=== PATIENT | male | born 1985 | race Caucasian/White ===

== ENCOUNTER 2020-11-27 14:57 | Emergency (ER) | payer SELFPAY ==
--- NOTE | 2020-11-27 15:02 | ED.GENADULT ---
HPI - General Adult General Chief complaint: Skin/Abscess/Foreign Body Stated complaint: Spreading Rash Time Seen by Provider: 11/27/20 15:01 Source: patient Mode of arrival: ambulatory Limitations: no limitations History of Present Illness HPI narrative: 35-year-old male patient presents to the [facility] with complaints of a rash to the left arm for the past 5 months. Patient states he did he does have history of eczema in the past but states that when he came into contact with some grew out couple months ago he had a worsening rash to the left arm. Patient states he has tried multiple [id number] medications including hydrocortisone ointment for the rash and states it continues to get worse. Patient states he was seen in June for some back pain and he was put on steroids and he noticed that the steroids did help clear up some of the rash. Patient denies being on daily antihistamines. Denies any fevers, body aches or chills. Denies any nausea, vomiting or diarrhea. Denies chest pain or shortness of breath. Related Data Allergies Allergy/AdvReac Type Severity Reaction Status Date / Time No Known Allergies Allergy Verified 11/27/20 15:13 Review of Systems Review of Systems: Narrative: CONSTITUTIONAL: Denies fever, chills, or sweats. EYES: Denies visual changes, redness, or discharge. ENT: Denies rhinorrhea, congestion, sore throat, or otalgia. CARDIOVASCULAR: Denies chest pain, palpitations, or edema. RESPIRATORY: Denies cough or dyspnea. GASTROINTESTINAL: Denies abdominal pain, nausea, vomiting, or diarrhea. GENITOURINARY: Denies dysuria or hematuria. SKIN: Positive rash to left arm x5 months with burning and itching. MUSCULOSKELETAL: Denies back pain, joint pain, or myalgia. NEUROLOGIC: Denies headache, numbness, or weakness. PSYCHIATRIC: Denies anxiety or depression. [facility] Past Medical History Medical History (Updated 11/27/20 @ 15:35 by GABY Miller) Clavicle fracture Eczema Musculoskeletal disorder Bulging disks in back, left hip pain Surgical History Surgical History (Updated 11/27/20 @ 15:07 by GABY Miller) History of appendectomy Comments At the time of my signature I agree with nursing past medical history, surgical, social, and family history. There is no relevant family history pertinent to the presenting complaint. Exam Narrative: Exam Narrative: GENERAL: Well-appearing, well-nourished, and in no acute distress. HEAD: Normocephalic, atraumatic. EYES: PERRLA and EOMI. ENT: Nares clear, no rhinorrhea or epistaxis. Mucous membranes moist. NECK: Supple. No lymphadenopathy CHEST: Clear to auscultation. No respiratory distress. HEART: Regular rate and rhythm. No murmur heard. Normal peripheral pulses. ABDOMEN: Soft, nontender, nondistended, normal active bowel sounds. EXTREMITIES: Normal range of motion. No edema. SKIN: Warm, dry, patient has rash noted to the left arm from the wrist to the middle of the forearm. It does appear very dry and is cracking along the wrist area. No obvious open areas or drainage noted. No warmth noted on palpitation. NEURO: No focal deficits. Alert and oriented x3. Course Vital Signs Vital signs: Vital Signs Temperature 36.2 C L 11/27/20 15:12 Pulse Rate 65 11/27/20 15:12 Respiratory Rate 16 11/27/20 15:12 Blood Pressure 148/80 H 11/27/20 15:12 Pulse Oximetry 98 11/27/20 15:12 Temperature 36.2 C L 11/27/20 15:12 Pulse Rate 65 11/27/20 15:12 Respiratory Rate 16 11/27/20 15:12 Blood Pressure 148/80 H 11/27/20 15:12 Pulse Oximetry 98 11/27/20 15:12 Vital signs reviewed The patient has been informed that they may have pre-hypertension or Hypertension based on a BP reading in the department. I recommend that the patient call the primary care provider listed on their discharge instructions or a physician of their choice this week to arrange follow up for further evaluation of possible pre-hypertension or Hyperten
[2020-11-27 15:12] VITALS: BP 148/80; PULSE 65; RESP 16; TEMP 36.2; O2SAT 98
== END 2020-11-27 15:38 | disposition home or self-care (01) ==
PROVIDERS: Emergency Provider Nurse Practitioner Family
DX: L30.9 Dermatitis, unspecified (principal)
CPT/HCPCS: 99203; G0463

== ENCOUNTER 2022-06-15 17:08 | Emergency (ER) | payer SELFPAY ==
--- NOTE | 2022-06-15 17:12 | ED.EAR ---
HPI - Ear Problem General Chief complaint: Ear Stated complaint: Left ear pain and pressure; bend down makes worse Time Seen by Provider: 06/15/22 17:25 Source: patient and RN notes reviewed Mode of arrival: ambulatory Limitations: no limitations History of Present Illness HPI Narrative: 37-year-old male presents concern for left ear pain. He reports pressure and bending down makes the pain worse. He reports over the last week he has had sinus pressure, congestion, drainage. He denies cough, sore throat, fever, body aches, drainage from the ear. MD Complaint: ear pain Related Data Allergies Allergy/AdvReac Type Severity Reaction Status Date / Time No Known Allergies Allergy Verified 06/15/22 17:19 Review of Systems Review of Systems: CONSTITUTIONAL: Denies malaise, chills, sweats, or fever. EYES: Denies visual changes, redness, or discharge. ENT: Reports rhinorrhea, congestion. Denies sinus pain, and sore throat. Reports ear pain CARDIOVASCULAR: Denies chest pain, palpitations, or edema. RESPIRATORY: Denies cough. Denies dyspnea. GASTROINTESTINAL: Denies abdominal pain, nausea, vomiting, diarrhea SKIN: Denies rash or itching. MUSCULOSKELETAL: Denies myalgia. NEUROLOGIC: Denies headache. All systems reviewed & are unremarkable except as noted in HPI and below PMFSH Past Medical History Medical History (Updated 06/15/22 @ 18:09 by Allison Vega NP) Clavicle fracture Eczema Musculoskeletal disorder Bulging disks in back, left hip pain Surgical History Surgical History (Updated 11/27/20 @ 15:07 by GABY Miller) History of appendectomy Comments At time of signature, agree with nursing past medical, surgical, social and family history. There is no relevant family history pertinent to the presenting complaint Exam Narrative: GENERAL: Well-appearing, well-nourished, and in no acute distress. HEAD: Normocephalic EYES: PERRLA, conjunctivae clear ENT: Nares clear, turbinates edematous, clear discharge. Mucous membranes moist. Right TM pearly jiménez with dull light reflex, left TM not visible due to cerumen impaction; no tragal tenderness. Oropharynx not erythematous without lesions. Tonsils not enlarged and without exudate, no drooling, no hoarseness, no trismus, uvula midline. NECK: Supple. No lymphadenopathy CHEST: Clear to auscultation, breath sounds equal. No wheezing, rhonchi, rales, or stridor. No respiratory distress, speaks in full sentences. HEART: Regular rate and rhythm. No murmur heard. SKIN: Warm, dry, no rash. NEURO: Alert and oriented x3. PSYCH: Normal mood and affect Course Course Emergency Course: Patient is aware of diagnosis, understands and agrees to treatment plan. Anticipatory guidance given. Patient agrees to follow-up as directed and is aware of reasons to seek care at the emergency department. Portions of this record may have been created with voice recognition software Level of Care: Express Care Visit Vital Signs Vital signs: Reviewed. Procedures Ear Wax Removal Left Ear: Ear Wax Removal Date: 06/15/22 Ear Wax Removal Time: 17:37 Cerumenolytic Used: other (Hydrogen peroxide) Results: Re-examined: removal reattempted Ear Canal Exam: atraumatic Patient Tolerated Procedure: well Complications: no problems Technique: ear canal irrigated and ear canal curetted Additional Comments: Unable to remove cerumen. Advised patient on measures he can take at home. Advised that he can return for reevaluation after he finishes antibiotic if he is still having ear pain. Medical Decision Making MDM Narrative Medical decision making narrative: Differential diagnosis considered: Weber virus, strep pharyngitis, allergic rhinitis, upper respiratory tract infection, sinusitis, rhinosinusitis, nasopharyngitis. viral pharyngitis, otitis media, otitis externa, otitis effusion, cerumen impaction, foreign body. Exam findings show no acu
[2022-06-15 17:14] VITALS: BP 120/71; PULSE 61; RESP 14; TEMP 36.7; O2SAT 100
== END 2022-06-15 18:12 | disposition home or self-care (01) ==
PROVIDERS: Emergency Provider Nurse Practitioner
DX: J32.9 Chronic sinusitis, unspecified (principal); H61.22 Impacted cerumen, left ear
CPT/HCPCS: 69210; 99213; G0463

== ENCOUNTER 2022-06-16 15:45 | Emergency (ER) | payer SELFPAY ==
[2022-06-16 15:49] VITALS: BP 116/84; PULSE 88; RESP 18; TEMP 37.4; O2SAT 99
--- NOTE | 2022-06-16 15:49 | ED.EAR ---
HPI - Ear Problem General Chief complaint: Ear Stated complaint: Ear Pain Time Seen by Provider: 06/16/22 15:49 Source: patient and RN notes reviewed History of Present Illness HPI Narrative: Patient is a 37-year-old male who presents the urgent care with complaints of left ear pain. Patient was at our facility yesterday for impaction to the left ear and placed on Augmentin and advised to use Debrox [id number]. Patient was unable to wait at the facility to try to have the cerumen removed completely because he did not have time . Patient has not started the Augmentin because the medication was too expensive . However patient has used the Debrox without any relief. Patient states his hearing now feels muffled with increased pain. Denies of any other upper respiratory complaints or fever. No other acute complaints. No acute distress noted. Patient aware of the plan of care. Some parts of this dictation were generated by voice recognition software and may contain typographical and/or grammatical inaccuracies. Related Data Allergies Allergy/AdvReac Type Severity Reaction Status Date / Time No Known Allergies Allergy Verified 06/16/22 15:58 Review of Systems Review of Systems: CONSTITUTIONAL: Denies fever, chills, or sweats. EYES: Denies visual changes, redness, or discharge. ENT: Denies rhinorrhea, congestion, sore throat. Reports of left otalgia CARDIOVASCULAR: Denies chest pain, palpitations, or edema. RESPIRATORY: Denies cough or dyspnea. GASTROINTESTINAL: Denies abdominal pain, nausea, vomiting, or diarrhea. GENITOURINARY: Denies dysuria or hematuria. SKIN: Denies rash or itching. MUSCULOSKELETAL: Denies back pain, joint pain, or myalgia. NEUROLOGIC: Denies headache, numbness, or weakness. All other systems reviewed are negative, except as documented in HPI. [facility] Past Medical History Medical History (Updated 06/16/22 @ 16:26 by GABY Apodaca) Clavicle fracture Eczema Musculoskeletal disorder Bulging disks in back, left hip pain Surgical History Surgical History (Updated 11/27/20 @ 15:07 by GABY Miller) History of appendectomy Comments At the time of my signature, I reviewed and agree with the nursing past medical, surgical, social, and family history. There is no relevant family history pertinent to the patient complaint. Exam Narrative: GENERAL: This is a well-nourished, well-developed patient, in no apparent distress. HEAD: normocephalic, atraumatic. EYES: PERRL. Sclera clear/white. Vision is grossly intact. EARS: External ears normal, auditory canals clear and without drainage, unable to visualize left TM due to cerumen impaction, right TM normal without perforation. Hearing grossly intact. NOSE: External nose normal with no obvious nasal discharge, nares without redness, no rhinorrhea. THROAT: Mucous membranes moist, posterior pharynx clear. NECK: Neck supple CARDIOVASCULAR: Regular rate and rhythm without murmurs, gallops, or rubs. RESPIRATORY: Clear to auscultation. Breath sounds equal bilaterally. No wheezes, rales, or rhonchi. SKIN: warm, intact with no suspicious lesions or rash, good texture and turgor. NEURO: awake, alert, and oriented to person, place and time. There were no obvious focal neurologic abnormalities. EXTREMITIES: No clubbing, cyanosis, or edema. Course Course Level of Care: Express Care Visit Vital Signs Vital signs: Vital Signs Temperature 99.3 F 06/16/22 15:49 Pulse Rate 88 06/16/22 15:49 Respiratory Rate 18 06/16/22 15:49 Blood Pressure 116/84 06/16/22 15:49 Pulse Oximetry 99 06/16/22 15:49 Oxygen Delivery Room Air 06/16/22 15:49 Temperature 99.3 F 06/16/22 15:49 Pulse Rate 88 06/16/22 15:49 Respiratory Rate 18 06/16/22 15:49 Blood Pressure 116/84 06/16/22 15:49 Pulse Oximetry 99 06/16/22 15:49 Oxygen Delivery Room Air 06/16/22 15:49 Reviewed Procedures Ear Wax Removal Left Ear: Cer
== END 2022-06-16 16:31 | disposition home or self-care (01) ==
PROVIDERS: Emergency Provider Nurse Practitioner Family
DX: H66.92 Otitis media, unspecified, left ear (principal); H61.22 Impacted cerumen, left ear
CPT/HCPCS: 69209; 99212; G0463

== ENCOUNTER 2022-07-26 17:44 | Emergency (ER) | payer SELFPAY ==
[2022-07-26 18:00] VITALS: BP 129/76; PULSE 79; RESP 20; TEMP 36.7; O2SAT 98
--- NOTE | 2022-07-26 19:08 | ED.URI ---
HPI - URI/Sore Throat General Chief Complaint: Upper Respiratory Infection Stated Complaint: chills aches fever congestion Time Seen by Provider: 07/26/22 19:08 Source: patient, RN notes reviewed and old records reviewed Mode of arrival: ambulatory Limitations: no limitations History of Present Illness HPI Narrative: 37-year-old male presents to the [facility] with chills, aches, fever and congestion since Tuesday. Has taken Mucinex for congestion. Denies chest pain or abdominal pain. Denies coughing. States that he slept all day Tuesday and Tuesday. Reports fevers of 101. Reports taking at home COVID test which he reports is negative Related Data Home Medications Medication Instructions Recorded Confirmed No Home Medications 07/26/22 07/26/22 Allergies Allergy/AdvReac Type Severity Reaction Status Date / Time No Known Allergies Allergy Verified 07/26/22 18:14 Review of Systems Review of Systems: All systems reviewed & are unremarkable except as noted in HPI and below Constitutional: Constitutional: Reports as per HPI, Reports no additional constitutional complaints, Reports body ache(s), Denies chills, Reports fatigue, Reports fever(s) and Denies headache(s) Eyes: Eyes: Reports no additional eye complaints ENT: Reports system reviewed and no additional complaints, except as documented and Denies headache(s) Cardiovascular: Cardiovascular: Reports no additional cardiovascular complaints, Denies chest pain and Denies dyspnea Respiratory: Respiratory: Reports no additional respiratory complaints and Denies dyspnea Gastrointestinal: Gastrointestinal: Reports no additional gastrointestinal complaints and Denies abdominal pain Musculoskeletal: Musculoskeletal: Reports no additional musculoskeletal complaints Integumentary/Breasts: Skin/Breast: Reports system reviewed and no additional complaints, except as docu Neurologic: Reports system reviewed and no additional complaints, except as documented and Denies headache(s) Psychiatric: Psychiatric: Reports no additional psychiatric complaints Allergic/Immunologic: Allergic/Immunologic: Reports no additional allergic/immunologic complaints [facility] Past Medical History Medical History Clavicle fracture Eczema Musculoskeletal disorder Bulging disks in back, left hip pain Surgical History Surgical History History of appendectomy Comments At the time of my signature, I reviewed and agree with the nursing past medical, surgical, social, and family history. There is no relevant family history pertinent to the patient complaint. Exam Const: General: cooperative, healthy appearing, comfortable, no acute distress, well developed, alert and well nourished Nutritional Appearance: well nourished Orientation/consciousness: patient oriented x3 Limitations: no limitations HENMT: Head: normal to inspection Ears: external ears normal Face/Nose/Sinus: Normal external nose present, Normal nares present, Normal nasal mucous membranes and turbinates present and normal facial exam Face and sinus: normal facial exam Mouth: Yes Normal oral and palatal mucosa present, Yes lip normal and Yes moist mucous membranes abnormal Throat: posterior oropharynx normal and uvula midline Eyes: General: appearance normal, both eyes and all related structures Alignment and Position: alignment normal Conjunctivae: conjunctivae normal Pupils: Equal, round and reactive pupils present EOM: EOMs intact bilaterally Neck: Neck: normal visual inspection, full ROM, no lymphadenopathy and no meningeal signs Chest: Chest palpation & inspection: normal inspection of the chest Resp: Effort & Inspection: normal respiratory effort and no use of accessory muscles Auscultation: clear to auscultation bilaterally, no crackles, no rales, no rhonchi and no wheezes Cardio: Rate: regular ra
== END 2022-07-26 19:23 | disposition home or self-care (01) ==
PROVIDERS: Emergency Provider Nurse Practitioner
DX: R50.9 Fever, unspecified (principal); R09.81 Nasal congestion
CPT/HCPCS: 99211; G0463